=== PATIENT | female | born 1970 | race Caucasian/White ===

== ENCOUNTER 2022-10-26 11:51 | Outpatient (CLI) | payer BC, SELFPAY | END 2022-10-26 11:52 | disposition home or self-care (01) | LOC: NFLDREF 10-27 01:27 | PROVIDERS: PCP Physician Assistant; Referring Provider Physician Assistant; Visit Provider Registered Nurse | DX: R30.0 Dysuria (principal); N39.0 Urinary tract infection, site not specified | CPT/HCPCS: 87086 ==

== ENCOUNTER 2023-08-25 06:55 | Day surgery (SDC) | payer BC, SELFPAY ==
[2023-08-25] VITALS (9 sets, daily range): BP systolic 97–131; BP diastolic 73–86; PULSE 62–85; RESP 16; TEMP 36.1–36.5; O2SAT 95–100; BMI 27.8
[2023-08-25] MEDS: SODIUM CHLORIDE 0.9 % (FLUSH) 10 ML SYRINGE IVF (07:40)
[2023-08-25] MEDS: LACTATED RINGERS 1000 ML 1,000 ML 100 ML IV (07:40)
--- NOTE | 2023-08-25 08:15 | CRLHL7_ITS ---
For Patients: As a result of the Century Cures Act, medical imaging exams and procedure reports are released immediately into your electronic medical record. You may view this report before your referring provider. If you have questions, please contact your health care provider. Indication: Left Bunionectomy, Hammertoe Correction Technique: Two fluoroscopic images of the left foot. Fluoroscopic time 31.4 seconds. IMPRESSION: Percutaneous fixation pins across the 2nd and 3rd toes. Lapidus bunionectomy. Dictated by Mati Mendes MD @ 08/26/2023 9:41:45 AM (Electronically Signed)
[2023-08-25] MEDS: BUPIVACAINE 0.25% 30 ML INJECTION (08:39)
[2023-08-25] MEDS: CEFAZOLIN 1 GM inj IVP ×2 (08:42→12:28)
--- NOTE | 2023-08-25 12:19 | SUR.OPER ---
georgina balls in 2nd and 3rd toes
--- NOTE | 2023-08-25 12:33 | W.PODPROC_ITS ---
Date of Procedure: 08/25/23 Surgeon: Estuardo Menezes DPM Pre-op Diagnosis: 1. Hallux valgus with bunion left 2. hammertoe deformity 2nd digit left 3. hammertoe deformity 3rd digit left 4. hammertoe deformity 4th digit left 5. hammertoe deformity 5th digit left Post-op Diagnosis: 1. Hallux valgus with bunion left 2. hammertoe deformity 2nd digit left 3. hammertoe deformity 3rd digit left 4. hammertoe deformity 4th digit left 5. hammertoe deformity 5th digit left Type of Procedure: 1. Lapidus bunionectomy left 2. hammertoe correction 2nd digit left 3. hammertoe correction 3rd digit left 4. hammertoe correction by flexor tenotomy 4th digit left 5. hammertoe correction 5th digit left 6. exostectomy distal phalanx 5th toe digit left 7. extensor tenotomy 2nd digit left Indications: patient seen in clinic for painful bunion and toe deformities. She has multiple areas of toes rubbing and creating pain. She has elected surgical care. Reviewed the procedure, recovery, expectations and potential complications. These include but are not limited to: Poor wound healing, infection, under correction, over correction, nonunion, delayed union, malunion, hardware irritation, hardware failure, nerve injury, complex regional pain syndrome, potential need for future surgery, deep venous thrombosis, pulmonary embolism possible . She understands risks written consent was obtained. All questions answered. Site was marked. Procedure Description: Patient brought the operating room placed supine position on operating table. IV sedation was initiated local anesthetic injected in the left foot. She was prepped and draped in normal Sterile fashion. Standard time-out protocol followed. Left foot was exsanguinated the tourniquet inflated. Linear incision made over the 1st metatarsophalangeal joint extending across the 1st metatarsal cuneiform joint of the left foot. Incision was carried down through skin subcutaneous tissues. Blunt dissection was carried down to the joint capsule at the 1st MPJ. T-shaped capsular incision was made the capsular tissues reflected away from the 1st metatarsal head. Blunt dissection was then carried down to the 1st intermetatarsal space. Standard lateral lease was performed with the lateral capsule, dorsal fibular sesamoidal ligaments and the adductor tendon released. At the level of the metatarsal cuneiform joint extensor tendon was reflected laterally and the fascia reflected away from the capsule. The 1st metatarsal cuneiform joint capsule was incised. Joint distractor applied. Cartilage from the base of the 1st metatarsal and the distal medial cuneiform was removed with a combination of a osteotome and curette. Area was thoroughly irrigated normal sterile saline. Additional correction was obtained with a sagittal saw feathering the space. C-arm confirmed excellent position. Opposing joint surfaces were fenestrated with a drill and fish-scaled with an osteotome. Small 1 cm incision made over the 2nd metatarsal neck. Blunt dissection carried down to the osseous surface On the lateral aspect. The lapifuse jig was applied and the 1st metatarsal corrected in all 3 planes. Guide pin was placed from the plantar medial 1st metatarsal base across the fusion site into the middle cuneiform. C-arm confirmed position. A 4.0 cannulated screw was then inserted using standard technique excellent compression noted across the fusion site. Five hole plate was then applied to the dorsal medial aspect with 3.0 mm locking screws x2 distal and times to proximal. C-arm confirmed excellent position. First metatarsal head was remodeled using a sagittal saw and rotary bur. Wound was thoroughly irrigated normal sterile saline. the great toe was sitting in an excellent position but a prominent bony area remained at the IPJ. A linear incisions made over the dorsal lateral IPJ of the great toe. Incision was carried down to the joint capsule. Joint capsule was incised and the tissue reflected away from the base of the distal phalanx and head of the proximal phalanx. sagittal saw and a rotary bur were used to remove the prominence. The area was fully irrigated normal sterile saline. C-arm confirmed resection. Tourniquet was released. All bleeding vessels cauterized. Redundant capsular tissue was excised At the MPJ. Capsular tissue was then repaired and tightened with 3-0 Vicryl. Deep fascia repaired with 3-0 Vicryl. Subcutaneous tissues reapproximated 4-0 Monocryl and skin closed with 4-0 Prolene. Using the incision of the 2nd metatarsal neck the extensor digitorum brevis and extensor digitorum longus tendons were isolated and transected. The incision was closed with 4-0 Monocryl and 4-0 Prolene. The tourniquet remained down for 30 minutes and then the foot was exsanguinated and the tourniquet reinflated. Transverse semielliptical incision was made at the PIPJ 2nd toe. Transverse incision made through the extensor tendon and joint capsule. Medial and Lateral collateral ligaments were rele ased. the head of the proximal phalanx was exposed and the base of the middle phalanx. Using an oscillating saw the head of the proximal phalanx the base of the middle phalanx were resected. Toe was irrigated with normal sterile saline. 0.045 smooth K-wire was introduced into the base of the middle phalanx and driven out to the tip of the toe. Fusion site was held together and rectus position and the K-wire driven retrogradely into the proximal phalanx. C-arm confirmed position. Redundant extensor tendon was excised and the tendon repaired with 4-0 Vicryl. Skin was repaired with 4-0 Prolene. The K-wire was bent cut and capped with a Jergens ball. Transverse semielliptical incision was made at the PIPJ 3rd toe. Transverse incision made through the extensor tendon and joint capsule. Medial and Lateral collateral ligaments were released. the head of the proximal phalanx was exposed and the base of the middle phalanx. Using an oscillating saw the head of the proximal phalanx the base of the middle phalanx were resected. Toe was irrigated with normal sterile saline. 0.045 smooth K-wire was introduced into the base of the middle phalanx and driven out to the tip of the toe. Fusion site was held together and rectus position and the K-wire driven retrogradely into the proximal phalanx. C-arm confirmed position. Redundant extensor tendon was excised and the tendon repaired with 4-0 Vicryl. Skin was repaired with 4-0 Prolene. The K-wire was bent cut and capped with a Jergens ball. Small stab incision was made in the plantar aspect of the 4th toe and the flexor tendon released utilizing a 6100 Matthews blade. Toe straightened into a nice position. Stab incision closed with 4-0 Prolene. an oblique semielliptical incision was made over the PIPJ 5th toe. Skin wedge removed. Transverse incision made through extensor tendon and joint capsule at the PIPJ. The medial and lateral collateral ligaments released. The head of the proximal phalanx was then resected with a oscillating saw. Redundant extensor tendon excised. The extensor tendon repaired with 4-0 Vicryl. The toe was de rotated and skin repaired with 4-0 Prolene. Linear incision made to lateral aspect of the distal phalanx. Incision carried down to the bone. Rotary bur was used to remove the bony spurring from the distal phalanx lateral aspect 5th toe. Wound irrigated with normal sterile saline. Skin closed with 4-0 Prolene. Sterile dressing applied to the foot. Tourniquet was released and normal capillary fill time returned all digits. She was placed in a well-padded cam boot. She was transferred from OR to same- day surgery with vital signs stable and vascular status intact. She is given both written and verbal postoperative instructions. She is weight-bearing to the heel in the cam boot. She is with crutches or knee walker. She is given oxycodone for pain. She will follow up in clinic in 2 days. Anesthesia: MAC and local Hemostasis: ankle Estimated blood loss (mL): 20 Implants: [place] left Lapifuse plate x1, 4.0 cannulated screw x1, 3.0 mm locking cortical screw x4, 0.045 smooth K-wires x2 Specimens: none sent Disposition: same day
[2023-08-25] MEDS: ONDANSETRON 2 MG/ML inj 4 MG IVP (12:55)
[2023-08-25] MEDS: METOCLOPRAMIDE HCL 5 MG/ML INJ 10 MG IVP (13:16)
[2023-08-25] MEDS: OxyCODONE/APAP 5-325 TABLET PO (13:24)
[2023-08-25] MEDS: HYDROmorphone 0.5 mg/0.5 ml inj IVP (13:37)
== END 2023-08-25 15:24 | disposition home or self-care (01) ==
LOC: OR 06:57
PROVIDERS: PCP Physician Assistant; Visit Provider Podiatrist
PROC: (CPT 28292; principal; 2023-08-25 08:15)
PROC: (CPT 28285; 2023-08-25 08:15)
DX: M20.12 Hallux valgus (acquired), left foot (principal); M20.42 Other hammer toe(s) (acquired), left foot; M21.612 Bunion of left foot
CPT/HCPCS: 28297; 28285 ×4; 73620; 76000; 97116; 97161; A9270; C1713; J0665; J0690; J1170; J2250; J2405; J2704; J2765; J3010; J3490; J7120

== ENCOUNTER 2023-10-25 09:45 | Outpatient (CLI) | payer BC, SELFPAY | END 2023-10-25 09:46 | disposition home or self-care (01) | LOC: NFLDREF 10-26 16:18 | PROVIDERS: PCP Physician Assistant; Referring Provider Physician Assistant; Visit Provider Physician Assistant | DX: N30.00 Acute cystitis without hematuria (principal) | CPT/HCPCS: 87086 ==

== ENCOUNTER 2023-12-17 10:00 | Outpatient (RCR) | payer BC, SELFPAY | END 2024-03-16 13:47 | disposition home or self-care (01) | PROVIDERS: PCP Physician Assistant; Visit Provider Family Medicine | DX: M17.11 Unilateral primary osteoarthritis, right knee (principal); M25.461 Effusion, right knee; M25.571 Pain in right ankle and joints of right foot; M25.572 Pain in left ankle and joints of left foot; M25.561 Pain in right knee; M25.551 Pain in right hip; M11.20 Other chondrocalcinosis, unspecified site; G89.29 Other chronic pain; Z98.890 Other specified postprocedural states; M79.89 Other specified soft tissue disorders; Z51.89 Encounter for other specified aftercare | CPT/HCPCS: 97110; 97140; 97161 ==